=== PATIENT | female | born 1980 | race Caucasian/White ===

== ENCOUNTER 2022-08-28 08:13 | Emergency (ER) | payer OTHER ==
--- NOTE | 2022-08-27 08:16 | HP ---
DATE OF SURGERY: 08/28/2022 HISTORY OF PRESENT ILLNESS: The patient is a 42-year-old female who presents with anemia. She recently received some iron and blood infusion. She states about nine years ago she had a fissure. She has not had a colonoscopy or EGD to date. She denies any blood in the stool or hematemesis. She will see Dr. Everett for this. PAST MEDICAL HISTORY: Thyroid. Asthma. PAST SURGICAL HISTORY: Carpal tunnel. D&C. ALLERGIES: SULFA. TRIMETHOPRIM. MEDICATIONS: Synthroid, trazodone, cyclobenzaprine, iron. FAMILY HISTORY: None reported. SOCIAL HISTORY: Current smoker. Occasional alcohol. REVIEW OF SYSTEMS: CONSTITUTIONAL: Denies fever or chills. CHEST: Denies shortness of breath. CVS: Denies chest pain. ABDOMEN: Denies abdominal pain. PHYSICAL EXAMINATION: GENERAL: No acute distress. CHEST: Nonlabored. No shortness of breath. CVS: Regular rate and rhythm. ABDOMEN: Soft. IMPRESSION: Anemia. PLAN: EGD and colonoscopy with Dr. Prasanna Pink. As dictated by Carine Martin NP.
[2022-08-28] MEDS ORDERED: Lactated Ringers 1,000 ML IV ONE (08:26)
[2022-08-28] MEDS ORDERED: Lactated Ringers 1,000 ML IV SCH (08:30)
[2022-08-28 09:36] LABS: HCG SERUM TEST NEGATIVE (NEGATIVE)
--- NOTE | 2022-08-28 11:09 | ERPHSYRPT ---
- History of Present Illness Time Seen by Provider: 08/28/22 11:05 Source: patient Exam Limitations: no limitations Patient Subjective Stated Complaint: C/O new onset HTN. Patient arrived in outpatient surgery for a scope and her B/P was noted to be elevated. Patient transferred to ER for evaluation. Triage Nursing Assessment: Patient brought to ER on stretcher. Patient able to transfer self from stretcher to ER with steady gait without difficulties. She is alert and oriented. No SOB. SKin tone normal. Denies pain. Physician History: Patient is a 42-year-old female presents to our ED as a referral from outpatient surgery for high blood pressure. Patient is believed to have a GI bleed. Patient was going to receive a EGD. Patient's blood pressure was found to be high with systolic in the 180s and patient was sent to our ED for an evaluation patient has no complaints. The procedure was canceled, Patient blood pressure in our ED decreased to 152 without intervention. Patient states that she has been very anxious. This may explain patient's elevated blood pressure. Patient otherwise asymptomatic. Significant other at bedside. They voiced no other complaints or concerns at this time. Portions of this note were created with voice recognition technology. There may be grammatical, spelling, punctuation or sound alike errors Timing/Duration: today Severity: mild Modifying Factors: Improves With: nothing Associated Symptoms: denies symptoms Allergies/Adverse Reactions: sulfamethoxazole [From Septra] Allergy (Unknown, Verified 08/28/22 10:51) Rash trimethoprim [From Septra] Allergy (Unknown, Verified 08/28/22 10:51) Rash Home Medications: Cyclobenzaprine HCl 10 mg [Cyclobenzaprine 10 MG] 10 mg PO UD PRN 07/31/22 [History] Levothyroxine Sodium [Synthroid] 275 mg PO UD 07/31/22 [History] Trazodone HCl 50 mg PO UD 07/31/22 [History] Hx Tetanus, Diphtheria Vaccination/Date Given: Yes Immunizations Up to Date: Yes Travel Risk - International Travel Have you traveled outside of the country in past 3 weeks: No - Coronavirus Screening Are you exhibiting any of the following symptoms?: No Close contact with a COVID-19 positive Pt in past 14-21 Days: No - Vaccine Status Have you recieved a Covid-19 vaccination: No - Review of Systems Constitutional: No Symptoms, No Fever, No Chills Eyes: No Symptoms Ears, Nose, & Throat: No Symptoms Respiratory: No Symptoms, No Cough, No Dyspnea Cardiac: No Symptoms, No Chest Pain, No Edema, No Syncope Abdominal/Gastrointestinal: No Symptoms, No Abdominal Pain, No Nausea, No Vomiting, No Diarrhea Genitourinary Symptoms: No Symptoms, No Dysuria Musculoskeletal: No Symptoms, No Back Pain, No Neck Pain Skin: No Symptoms, No Rash Neurological: No Symptoms, No Dizziness, No Focal Weakness, No Sensory Changes Psychological: No Symptoms Endocrine: No Symptoms Hematologic/Lymphatic: No Symptoms Immunological/Allergic: No Symptoms All Other Systems: Reviewed and Negative - Past Medical History Pertinent Past Medical History: Yes Neurological History: No Pertinent History ENT History: No Pertinent History Cardiac History: No Pertinent History Respiratory History: Asthma, Sleep Apnea Endocrine Medical History: Hypothyroidism Musculoskeletal History: No Pertinent History GI Medical History: No Pertinent History History: No Pertinent History Psycho-Social History: No Pertinent History Female Reproductive Disorders: No Pertinent History Other Medical History: insomnia, back pain - Past Surgical History Past Surgical History: Yes Neuro Surgical History: No Pertinent History Cardiac: No Pertinent History Respiratory: No Pertinent History Gastrointestinal: No Pertinent History Genitourinary: No Pertinent History Musculoskeletal: No Pertinent History Female Surgical History: Dilation & Curettage, Tubal Ligation Other Surgical History: uterine ablation, breast biopsy for black drainage - Social History Smoking Status: Current every day smoker How long have you smoked: age 14 Exposure to second hand smoke: Yes Drug Use: none Patient Lives Alone: No - Female History Hx Now: No (tubal) - Nursing Vital Signs Nursing Vital Signs: Initial Vital Signs Temperature 98.0 F 08/28/22 08:57 Pulse Rate 81 08/28/22 08:57 Respiratory Rate 18 08/28/22 08:57 Blood Pressure 170/118 08/28/22 08:57 O2 Sat by Pulse Oximetry 95 08/28/22 08:57 Pain Scale Pain Intensity 0 - Physical Exam General Appearance: no apparent distress, alert Eye Exam: PERRL/EOMI, eyes nml inspection Ears, Nose, Throat Exam: normal ENT inspection, pharynx normal, moist mucous membranes Neck Exam: normal inspection, non-tender, supple, full range of motion Respiratory Exam: normal breath sounds, lungs clear, airway intact, No respiratory distress Cardiovascular Exam: regular rate/rhythm, normal heart sounds, normal peripheral pulses Gastrointestinal/Abdomen Exam: soft, normal bowel sounds, No tenderness, No mass Back Exam: normal inspection, normal range of motion, No CVA tenderness, No vertebral tenderness Extremity Exam: normal inspection, normal range of motion, pelvis stable Neurologic Exam: alert, oriented x 3, cooperative, normal mood/affect, nml cerebellar function, nml station & gait, sensation nml, No motor deficits Skin Exam: normal color, warm, dry, No rash Lymphatic Exam: No adenopathy SpO2 Interpretation: normal SpO2: 96 O2 Delivery: Room Air - Course Nursing assessment & vital signs reviewed: Yes Ordered Tests: Active Orders 24 hr Category Date Time Status CBC W DIFF Stat Lab 08/28/22 11:19 Completed CMP Stat Lab 08/28/22 11:19 Completed HCG QUALITATIVE, SERUM Stat Lab 08/28/22 09:20 Completed TROPONIN Q4H Lab 08/28/22 11:19 Completed TROPONIN Q4H Lab 08/28/22 15:15 Ordered TROPONIN Q4H Lab 08/28/22 19:15 Ordered EKG STAT RT 08/28/22 08:18 Active Medication Summary Generic Name Dose Route Start Last Admin Trade Name Freq PRN Reason Stop Dose Admin Lactated Ringer's 1,000 mls @ 50 mls/hr 08/28/22 08:30 08/28/22 08:29 Lactated Ringers IV 09/27/22 08:29 50 mls/hr .Q20H NICKI Administration Discontinued Medications Generic Name Dose Route Start Last Admin Trade Name Freq PRN Reason Stop Dose Admin Lactated Ringer's Confirm 08/28/22 08:26 Lactated Ringers Administered 08/28/22 08:27 Dose 1,000 mls @ ud IV .STK-MED ONE Lab/Rad Data: Laboratory Result Diagrams 08/28/22 11:19 08/28/22 11:19 Laboratory Results 08/28/22 08/28/22 08/28/22 Range/Units 11:19 11:19 11:19 WBC 5.4 (4.0-10.5) x10^3/uL RBC 4.22 (4.1-5.4) x10^6/uL Hgb 13.3 (12.0-16.0) g/dL Hct 41.2 (35-47) % MCV 97.6 (78-100) fL MCH 31.5 (26-32) pg MCHC 32.3 (32-36) g/dL RDW 16.6 H (11.5-14.0) % Plt Count 260 (150-450) x10^3/uL MPV 9.9 (7.5-11.0) fL Gran % 56.1 (36.0-66.0) % Immature Gran % (Auto) 0.7 H (0.00-0.4) % Nucleat RBC Rel Count 0.0 (0.00-0.1) % Eos # (Auto) 0.20 (0-0.5) x10^3/uL Immature Gran # (Auto) 0.04 H (0.00-0.03) x10^3u/L Absolute Lymphs (auto) 1.18 (1.0-4.6) x10^3/uL Absolute Monos (auto) 0.87 (0.0-1.3) x10^3/uL Absolute Nucleated RBC 0.00 (0.00-0.01) x10^3u/L Lymphocytes % 21.9 L (24.0-44.0) % Monocytes % 16.1 H (0.0-12.0) % Eosinophils % 3.7 (0.00-5.0) % Basophils % 1.5 (0.0-0.4) % Absolute Granulocytes 3.03 (1.4-6.9) x10^3/uL Basophils # 0.08 (0-0.4) x10^3/uL Sodium 138 (137-145) mmol/L Potassium 4.1 (3.5-5.1) mmol/L Chloride 100 (98-107) mmol/L Carbon Dioxide 30 (22-30) mmol/L Anion Gap 11.7 (5-15) MEQ/L BUN 6 L (7-17) mg/dL Creatinine 0.76 (0.52-1.04) mg/dL Estimated GFR > 60.0 ML/MIN Glucose 103 (74-106) mg/dL Calcium 8.8 (8.4-10.2) mg/dL Total Bilirubin 0.50 (0.2-1.3) mg/dL AST 67 H (14-36) U/L ALT 63 H (0-35) U/L Alkaline Phosphatase 279 H (38-126) U/L Troponin I < 0.012 (0.000-0.034) ng/mL Serum Total Protein 8.5 H (6.3-8.2) g/dL Albumin 4.3 (3.5-5.0) g/dL Serum HCG, Qual (NEGATIVE) 08/28/22 Range/Units 09:20 WBC (4.0-10.5) x10^3/uL RBC (4.1-5.4) x10^6/uL Hgb (12.0-16.0) g/dL Hct (35-47) % MCV (78-100) fL MCH (26-32) pg MCHC (32-36) g/dL RDW (11.5-14.0) % Plt Count (150-450) x10^3/uL MPV (7.5-11.0) fL Gran % (36.0-66.0) % Immature Gran % (Auto) (0.00-0.4) % Nucleat RBC Rel Count (0.00-0.1) % Eos # (Auto) (0-0.5) x10^3/uL Immature Gran # (Auto) (0.00-0.03) x10^3u/L Absolute Lymphs (auto) (1.0-4.6) x10^3/uL Absolute Monos (auto) (0.0-1.3) x10^3/uL Absolute Nucleated RBC (0.00-0.01) x10^3u/L Lymphocytes % (24.0-44.0) % Monocytes % (0.0-12.0) % Eosinophils % (0.00-5.0) % Basophils % (0.0-0.4) % Absolute Granulocytes (1.4-6.9) x10^3/uL Basophils # (0-0.4) x10^3/uL Sodium (137-145) mmol/L Potassium (3.5-5.1) mmol/L Chloride (98-107) mmol/L Carbon Dioxide (22-30) mmol/L Anion Gap (5-15) MEQ/L BUN (7-17) mg/dL Creatinine (0.52-1.04) mg/dL Estimated GFR ML/MIN Glucose (74-106) mg/dL Calcium (8.4-10.2) mg/dL Total Bilirubin (0.2-1.3) mg/dL AST (14-36) U/L ALT (0-35) U/L Alkaline Phosphatase (38-126) U/L Troponin I (0.000-0.034) ng/mL Serum Total Protein (6.3-8.2) g/dL Albumin (3.5-5.0) g/dL Serum HCG, Qual NEGATIVE (NEGATIVE) - Progress Progress: improved Progress Note: Patient is a 42-year-old female presents to our ED as a referral from outpatient surgery for evaluation of high blood pressure. Patient otherwise asymptomatic. Patient states she is being worked up for possible upper GI bleed. However the procedure was canceled due to elevated blood pressure. Patient arrived without complaints. Patient requested that we get basic labs to check her hemoglobin. Test ordered include CBC which reveals a hemoglobin of 13.3. CMP shows an AST of 67 ALT of 63. Alk phos 279. hCG negative. Troponin negative. EKG normal sinus rhythm. Patient received normal saline due to the possibility of upper GI bleed. Patient reassessed. She is asymptomatic. Patient's blood pressure initially upon arrival was 180 systolic. However it is now 126/96 without medicinal intervention. Patient agrees to follow-up with her primary care doctor and reassess her blood pressure. She will contact her surgeon to reschedule her procedure. Significant other at bedside. They voiced no other complaints or concerns at this time. Portions of this note were created with voice recognition technology. There may be grammatical, spelling, punctuation or sound alike errors Complexity of problem addressed is moderate, acute complicated Complexity of data reviewed and analyzed is moderate. Test ordered test reviewed and clinically correlated with physical exam findings. We also correlated findings with patient's monitor and vitals. Blood pressure normalized. Hemoglobin within normal limits. Patient has no complaints or symptoms at this time. Will discharge home. Risk of complication and or risk morbidity/mortality of patient management is low. Patient only received IV fluids in our ED. Patient agrees to follow-up with her primary care doctor within 48 hours for reevaluation. No social determinants of health present to impede follow-up. Plan of care established via shared decision making. Vital stable blood pressure improved Portions of this note were created with voice recognition technology. There may be grammatical, spelling, punctuation or sound alike errors 08/28/22 12:18 Counseled pt/family regarding: lab results, diagnosis, need for follow-up - Departure Departure Disposition: Home Clinical Impression: Hypertension, Elevated liver enzymes, Elevated alkaline phosphatase level Condition: Stable Critical Care Time: No Referrals: EMILIE LOCKHART [Primary Care Provider] - Follow up/PCP as directed Instructions: High Blood Pressure (DC) Additional Instructions: Discharge/Care Plan SALLY ANAYA was seen on 08/28/22 in the Emergency Room. The patient was counseled regarding Diagnosis,Lab results, Imaging studies, need for follow up and when to return to the Emergency Room. Prescriptions given: Discharge Note I have spoken with the patient and/or caregivers. I have explained the patient's condition, diagnosis and treatment plan based on the information available to me at this time. I have answered the patient's and/or caregiver's questions and addressed any concerns. The patient and/or caregivers have as good understanding of the patient's diagnosis, condition and treatment plan as can be expected at this point. The vital signs have been stable. The patient's condition is stable and appropriate for discharge from the emergency department. The patient will pursue further outpatient evaluation with the primary care physician or other designated or consulting physician as outlined in the discharge instructions. The patient and/or caregivers are agreeable to this plan of care and follow-up instructions have been explained in detail. The patient and/or caregivers have received these instruction. The patient/and or caregivers are aware that any significant change in condition or worsening of symptoms should prompt an immediate return to this or the closest emergency department or call 911.
[2022-08-28 11:23] LABS: Absolute Neutrophil Ct (ANC) 3.03 x10^3/uL (1.4-6.9); BASOPHIL % 1.5 % (0.0-0.4); Basophil (Absolute #) 0.08 x10^3/uL (0-0.4); Eosinophil % 3.7 % (0.00-5.0); Hematocrit 41.2 % (35-47); Hemoglobin 13.3 g/dL (12.0-16.0); IMMATURE GRAN # 0.04 x10^3u/L (0.00-0.03); IMMATURE GRAN % 0.7 % (0.00-0.4); Lymphocyte (Absolute #) 1.18 x10^3/uL (1.0-4.6); Lymphocytes % 21.9 % (24.0-44.0); Mean Cell Volume 97.6 fL (78-100); Mean Corpuscular Hemoglobin 31.5 pg (26-32); Mean Corpuscular Hgb Concent. 32.3 g/dL (32-36); Mean Platelet Volume 9.9 fL (7.5-11.0); Monocyte (Absolute #) 0.87 x10^3/uL (0.0-1.3); Monocytes % 16.1 % (0.0-12.0); Neutrophil % 56.1 % (36.0-66.0); Platelet Count 260 x10^3/uL (150-450); Red Blood Count 4.22 x10^6/uL (4.1-5.4); Red Cell Distribution Width 16.6 % (11.5-14.0); White Blood Count 5.4 x10^3/uL (4.0-10.5)
[2022-08-28 11:37] LABS: ALBUMIN 4.3 g/dL (3.5-5.0); ALKALINE PHOSPHATASE 279 U/L (38-126); ANION GAP 11.7 MEQ/L (5-15); BLOOD UREA NITROGEN 6 mg/dL (7-17); CHLORIDE 100 mmol/L (98-107); Calcium 8.8 mg/dL (8.4-10.2); Carbon Dioxide 30 mmol/L (22-30); Creatinine 1 0.76 mg/dL (0.52-1.04); EST GLOMERULAR FILTRATION RATE > 60.0 ML/MIN; Glucose 103 mg/dL (74-106); Potassium 4.1 mmol/L (3.5-5.1); SGOT/AST 67 U/L (14-36); SGPT/ALT 63 U/L (0-35); SODIUM 138 mmol/L (137-145); Total Protein 8.5 g/dL (6.3-8.2)
[2022-08-28 12:19] VITALS: BP 126/96; PULSE 73; O2SAT 96
== END 2022-08-28 12:29 | disposition home or self-care (01) ==
LOC: SDC 08:13 → ED 08:13 → EDSTATUS 10:16 → ED 12:29
DX: I10 Essential (primary) hypertension (principal); R74.8 Abnormal levels of other serum enzymes; R94.5 Abnormal results of liver function studies; Z79.899 Other long term (current) drug therapy; Z28.310 Unvaccinated for COVID-19; Z72.0 Tobacco use
CPT/HCPCS: 36415; 80053; 84484; 84703; 85025; 93005; 96360; 99283